=== PATIENT | male | born 1980 | race African-American/Black ===

== ENCOUNTER 2018-07-13 16:10 | Emergency (ER) | payer OTHER ==
[2018-07-13 16:20] VITALS: BP 141/73; PULSE 78; TEMP 99.3; BMI 33.0
--- NOTE | 2018-07-13 17:05 | PDOC ---
History of Present Illness - General Chief Complaint: Toothache Stated Complaint: TOOTH PAIN Time Seen by Provider: 07/13/18 16:32 History Source: Patient Exam Limitations: Clinical Condition - History of Present Illness Initial Comments: 07/13/18 17:12 Patient with history of dental cavities and decayed right upper tooth present with complaint of worsening dental pain for the past 2 days. Patient reported he was seen by dentist yesterday and was told history needed extraction as piece of tooth which was decayed left side right upper gums. Patient reported dentist office made appointment for another month for tooth extraction and was told prescription sent to the pharmacy for pain but prescription was not in the pharmacy when he went to the pharmacy. Denies any other symptoms Past History - Past Medical History Allergies/Adverse Reactions: Allergies Allergy/AdvReac Type Severity Reaction Status Date / Time No Known Allergies Allergy Verified 07/13/18 16:16 Home Medications: Ambulatory Orders Amox-Tr/K Cl [Augmentin - 875Mg Tablet] 1 tab PO BID #14 tablet 07/13/18 Ibuprofen 800 mg PO Q8H PRN #20 tablet 07/13/18 COPD: No HTN: Yes - Immunization History Immunization Up to Date: No - Suicide/Smoking/Psychosocial Hx Smoking History: Current some day smoker Number of Cigarettes Smoked Daily: 20 Information on smoking cessation initiated: Yes 'Breaking Loose' booklet given: 10/28/14 Hx Alcohol Use: No Substance Use Type: None Review of Systems - Review of Systems Able to Perform ROS?: Yes Is the patient limited Kazakh proficient: No Constitutional: No: Chills, Fever HEENTM: Yes: Symptoms Reported, See HPI, Dental Problems Respiratory: No: Symptoms reported Cardiac (ROS): No: Symptoms Reported ABD/GI: No: Symptoms Reported, Nausea, Vomiting All Other Systems: Reviewed and Negative *Physical Exam - Vital Signs Last Vital Signs Temp Pulse Resp BP Pulse Ox 99.3 F 78 16 141/73 99 07/13/18 16:16 07/13/18 16:16 07/13/18 16:16 07/13/18 16:16 07/13/18 16:16 - Physical Exam Comments: 07/13/18 17:14 GENERAL: Well developed, well nourished. Awake and alert. No acute distress. HEENT: small piece of decayed tooth with rest of tooth missing to right upper 1st premolar. Normocephalic, atraumatic. PERRLA, EOMI. No conjunctival pallor. Sclera are non-icteric. Moist mucous membranes. Oropharynx is clear. NECK: Supple. Full ROM. CARDIOVASCULAR: Regular rate and rhythm. No murmurs, rubs, or gallops. Distal pulses are 2+ and symmetric. PULMONARY: No evidence of respiratory distress. SKIN: Warm and dry. Normal capillary refill. No rashes. No jaundice. NEUROLOGICAL: Alert, awake, appropriate. Gait is normal without ataxia. PSYCHIATRIC: Cooperative. Good eye contact. Appropriate mood General Appearance: Yes: Nourished, Appropriately Dressed, Mild Distress Moderate Sedation - Procedure Monitoring Vital Signs: Procedure Monitoring Vital Signs Temperature 99.3 F 07/13/18 16:16 Pulse Rate 78 07/13/18 16:16 Respiratory Rate 16 07/13/18 16:16 Blood Pressure 141/73 07/13/18 16:16 O2 Sat by Pulse Oximetry (%) 99 07/13/18 16:16 Medical Decision Making - Medical Decision Making 07/13/18 17:16 Patient with no significant past medical history present with complaint of right upper tooth pain and piece of tooth left in the gum. Patient had follow- up dental appointment in a month but could not tolerate the pain. Exam significant for small piece of decayed tooth with rest of tooth missing to right upper 1st premolar.Toradol 60 mg IM given for pain. Patient stable for discharge on ibuprofen as needed for pain with dental follow-up *DC/Admit/Observation/Transfer Diagnosis at time of Disposition: Tooth ache, Dental decay - Discharge Dispostion Disposition: HOME Condition at time of disposition: Stable Decision to Admit order: No - Prescriptions Prescriptions: Amox-Tr/K Cl [Augmentin - 875Mg Tablet] 1 tab PO BID #14 tablet Ibuprofen 800 mg PO Q8H PRN #20 tablet PRN Reason: pain - Referrals - Patient Instructions Printed Discharge Instructions: DI for Tooth Decay, DI for Dental Pain Additional Instructions: Take medications as prescribed. Call your insurance to refer for dental or go to dental urgent care on [facility] if unable to get immediate dental appointment - Post Discharge Activity
[2018-07-13] MEDS ORDERED: KETOROLAC TROMETHAMINE 60 MG/2 ML VIAL IM ONE (17:09)
[2018-07-13] MEDS ORDERED: KETOROLAC TROMETHAMINE 60 MG/2 ML VIAL ONE (17:11)
== END 2018-07-13 17:18 | disposition home or self-care (01) ==
LOC: JERFT 16:10
PROC: 3E0233Z Introduction of Anti-inflammatory into Muscle, Percutaneous Approach (ICD-10-PCS; principal; 2018-07-13)
DX: K02.9 Dental caries, unspecified (principal)
CPT/HCPCS: 96372; 99281-25